=== PATIENT | male | born 1980 | race Two or more races ===

== ENCOUNTER 2021-12-01 13:43 | Emergency (ER) | payer SELFPAY ==
[2021-12-01] MEDS ORDERED: Lidocaine 1% with EPINEPHrine 1:100,000 20 ML MDV INJECT ONE (14:38)
[2021-12-01] MEDS ORDERED: Lidocaine 1% with EPINEPHrine 1:100,000 10 ML MDV INJECT ONE ×2 (14:41→14:42)
== END 2021-12-01 15:51 | disposition home or self-care (01) ==
LOC: MW.ED 13:43
DX: S51.812A Laceration without foreign body of left forearm, initial encounter (principal); W18.39XA Other fall on same level, initial encounter; W26.8XXA Contact with other sharp object(s), not elsewhere classified, initial encounter
CPT/HCPCS: 12002; 99282-25